=== PATIENT | male | born 1990 | race Caucasian/White ===

== ENCOUNTER 2020-03-07 12:58 | Emergency (ER) | payer OTHER, SELFPAY ==
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
[2020-03-07 13:17] VITALS: BP 128/78; PULSE 74; RESP 20; TEMP 36.9; O2SAT 100
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
== END 2020-03-07 14:01 | disposition home or self-care (01) ==
PROVIDERS: Emergency Provider Nurse Practitioner Family
DX: R07.81 Pleurodynia (principal); S39.012A Strain of muscle, fascia and tendon of lower back, initial encounter; V99.XXXA Unspecified transport accident, initial encounter
CPT/HCPCS: 71100; 99203; 99213; G0463

== ENCOUNTER 2021-11-24 11:38 | Outpatient (CLI) | payer OTHER, SELFPAY ==
[2021-11-26 06:37] LABS: Liquefaction Semen Complete in 30 min. (<30 minutes); Semen Color Opaque (Grey-opaque); Semen Immotility 10 %; Semen Non-Progressive Motility 20 %; Semen Viscosity Not Increased (Not Increa.)
[2021-11-26 06:38] LABS: Semen Progressive Motility 70 % (>32); Semen Total Motility 90 (>40% (PM+NP))
[2021-11-26 06:40] LABS: Semen Morphology Result to Follow
[2021-11-26 06:48] LABS: Volume Semen 3.5 mL (1.5-5.0)
[2021-11-29 21:08] LABS: Fructose, Semen 206 mg/dL (150-600)
== END 2021-11-24 11:39 | disposition home or self-care (01) ==
LOC: CHSLAB 11:49
PROVIDERS: PCP Physician Assistant
DX: Z31.41 Encounter for fertility testing (principal)
CPT/HCPCS: 82757; 88160; 89320